=== PATIENT | female | born 1985 | race Caucasian/White ===

== ENCOUNTER 2022-11-08 10:41 | Outpatient (CLI) | payer OTHER ==
--- NOTE | 2022-11-09 09:58 | Ultrasound Report ---
LIMITED ULTRASOUND OF RIGHT BREAST: 11/08/2022 CLINICAL: Intermittent pain in right breast. Comparison is made to exam dated: 11/08/2022 mammogram - [facility]. Real-time ultrasound of the right breast 6 o'clock and 12 o'clock regions was performed. Davis scale images of the real-time examination were reviewed. No significant abnormalities were seen sonographically in the right breast in the region of pain. IMPRESSION: NEGATIVE There is no sonographic evidence of malignancy. No mass or cyst in the focal areas of pain. Exam findings were conveyed to the patient. Patient is advised to monitor for significant change. Cli nical follow-up as needed. A 4 year screening mammogram is recommended. This exam was interpreted at Station ID: [id number]. Electronically Signed By: Darren Mann M.D. slc/:11/08/2022 12:19:28 Ultrasound BI-RADS: 1 Negative BI-RADS CATEGORY: (1) - 1 Mammogram [id number] 4 year screening LATERALITY: (B)
--- NOTE | 2022-11-09 09:58 | Mammography Report ---
BILATERAL DIGITAL DIAGNOSTIC MAMMOGRAM 3D/2D WITH SPOT COMPRESSION: 11/08/2022 CLINICAL: Baseline exam. Right intermittent breast pain. No prior exams were available for comparison. Both breasts are heterogeneously dense, which may obscure small masses (category c / 51-75% glandular tissue). No significant masses, calcifications, or other findings are seen in either breast. IMPRESSION: INCOMPLETE: NEEDS ADDITIONAL IMAGING EVALUATION No mammographic evidence of malignancy. A targeted ultrasound is recommended for focal right breast pain and will immediately follow. Based on the Tyrer Cuzick model (a risk assessment model) the patients lifetime risk is 13.4% and he r 10 year risk is 1.1%. According to the ACR, ACS, and NCCN guidelines, an annual breast MRI exam loni ng with mammogram is recommended if the patients lifetime risk is 20% or greater. This exam was interpreted at Station ID: [id number]. NOTE: For mammograms, a report in lay terms will be sent to the patient. Approximately 15% of breast malignancies will not be visualized mammographically. In the management of a palpable breast mass, a negative mammogram must not discourage biopsy of a clinically suspicious lesion. Electronically Signed By: Darren Mann M.D. slc/:11/08/2022 11:45:07 ACR BI-RADS Category 0: Incomplete 3340F PARENCHYMAL PATTERN: (D) - The breast(s) demonstrate(s) heterogeneously dense fibroglandular parenchy ma. BI-RADS CATEGORY: (0) - 0 Ultrasound [id number] Immediate follow-up LATERALITY: (B)
== END 2022-11-08 10:42 | disposition home or self-care (01) ==
LOC: DI 10:41
PROVIDERS: ATTEND Family Medicine
DX: N64.4 Mastodynia (principal)